=== PATIENT | male | born 1990 | race Caucasian/White ===

== ENCOUNTER 2017-01-12 20:47 | Emergency (ER) | payer OTHER ==
[2017-01-12 20:55] VITALS: TEMP 98.2
--- NOTE | 2017-01-12 21:06 | EDPHY ---
H & P Stated Complaint: Dark urine, testicular cramping right side 6 hours Time Seen by Provider: 01/12/17 21:05 HPI/ROS: CHIEF COMPLAINT: Dark urine, right testicular pain, transient flank HISTORY OF PRESENT ILLNESS: Patient presents to the ED with complaints of right testicular pain that began several hours ago. Patient did experience some acute right lower quadrant pain and then went onto developed hematuria. The patient denies prior history of these symptoms. Patient denies significant past medical history. The patient is not on regular medications. The patient has no prior history of kidney stone. The patient denies history of testicular trauma. The patient currently complains of 3/10 right testicular pain. REVIEW OF SYSTEMS: A comprehensive 10 point review of systems is otherwise negative aside from elements mentioned in the history of present illness. Source: Patient Exam Limitations: No limitations - Personal History Current Tetanus Diphtheria and Acellular Pertussis (TDAP): Yes Tetanus Vaccine Date: 8 yrs ago - Medical/Surgical History Hx Asthma: No Hx Chronic Respiratory Disease: No Hx Diabetes: No Hx Cardiac Disease: No Hx Renal Disease: No Hx Cirrhosis: No Hx Alcoholism: No Hx HIV/AIDS: No Hx Splenectomy or Spleen Trauma: No Other PMH: concusions - Social History Smoking Status: Former smoker - Physical Exam Exam: General Appearance: Alert, no distress Head: Atraumatic Eyes: Pupils equal, round, reactive ENT, Mouth: No hemotympanum, no oral trauma Neck: Nontender, trachea midline Respiratory: No chest wall tender, subcutaneous air, lungs clear bilaterally Cardiovascular: Regular rate and rhythm Abdomen: Tenderness to palpation right lower quadrant, back no CVA tenderness Genitourinary: No testicular tenderness, swelling, erythema or mass appreciated Skin: No lacerations, No abrasion Back: No midline T/L/S pain Extremities: Nontender, full range of motion Neurological: A&Ox3, normal motor function, normal sensory exam Constitutional: Initial Vital Signs Temperature (C) 36.8 C 01/12/17 20:50 Heart Rate 64 01/12/17 20:50 Respiratory Rate 18 01/12/17 20:50 Blood Pressure 154/113 H 01/12/17 20:50 O2 Sat (%) 97 01/12/17 20:50 O2 Delivery Mode Nasal Cannula Allergies/Adverse Reactions: No Known Allergies Allergy (Unverified 01/12/17 20:49) Home Medications: Medication Instructions Recorded NK [No Known Home Meds] 01/12/17 Medical Decision Making - Diagnostics Imaging Results: Imaging Impressions Abdomen/Pelvis CT 01/12/17 21:16 Impression: 1. No nephrolithiasis, ureteral calculi, or hydroureteronephrosis. 2. Bilateral L5 pars defect. Findings discussed with Emergency Department physician, Med Lozoya M.D. , on January 12, 2017 at 2216. Attention: This CT examination is specifically designed to evaluate patients who are clinically suspected of having acute obstructive uropathy. This examination does not use radiographic contrast, and as such, provides only a limited evaluation of the abdomen, pelvis, and retroperitoneum. If there is further clinical suspicion for pathological conditions other than obstructive uropathy, a complete CT evaluation of the abdomen and pelvis utilizing intravenous, oral, and rectal contrast should be considered. ED Course/Re-evaluation: The patient presents to the ED with complaints of acute right testicular pain, hematuria and right lower quadrant pain. The patient had an IV established. He received normal saline. The patient was noted to have gross hematuria. The patient was taken for stat CT scan of the abdomen pelvis which demonstrates no evidence of obvious ureterolithiasis or nephrolithiasis. I re-evaluated the patient shortly after CT scan, the patient is feeling much better. At this point time I suspect the patient has passed a stone as he does have calcium oxalate crystals noted on his urinalysis. At this point time I do feel the patient can be discharged home. He is advised to return to the ED for markedly worsening symptoms or other concerns. The plan will be for ibuprofen as needed for symptomatic pain. Differential Diagnosis: Differential diagnosis considered includes ureterolithiasis, nephrolithiasis, hydronephrosis, renal failure, rhabdomyolysis - Data Points Laboratory Results: Laboratory Results 01/12/17 21:27 01/12/17 21:27 01/12/17 01/12/17 01/12/17 21:27 21:27 21:20 WBC 10.53 10^3/uL H 10^3/uL (3.80-9.50) RBC 5.16 10^6/uL 10^6/uL (4.40-6.38) Hgb 16.4 g/dL g/dL (13.7-17.5) Hct 44.8 % % (40.0-51.0) MCV 86.8 fL fL (81.5-99.8) MCH 31.8 pg pg (27.9-34.1) MCHC 36.6 g/dL g/dL (32.4-36.7) RDW 12.2 % % (11.5-15.2) Plt Count 202 10^3/uL 10^3/uL (150-400) MPV 10.5 fL fL (8.7-11.7) Neut % (Auto) 70.5 % % (39.3-74.2) Lymph % (Auto) 19.1 % % (15.0-45.0) Stanley % (Auto) 8.6 % % (4.5-13.0) Eos % (Auto) 0.6 % % (0.6-7.6) Baso % (Auto) 0.8 % % (0.3-1.7) Nucleat RBC Rel Count 0.0 % % (0.0-0.2) Absolute Neuts (auto) 7.43 10^3/uL H 10^3/uL (1.70-6.50) Absolute Lymphs (auto) 2.01 10^3/uL 10^3/uL (1.00-3.00) Absolute Monos (auto) 0.91 10^3/uL H 10^3/uL (0.30-0.80) Absolute Eos (auto) 0.06 10^3/uL 10^3/uL (0.03-0.40) Absolute Basos (auto) 0.08 10^3/uL 10^3/uL (0.02-0.10) Absolute Nucleated RBC 0.00 10^3/uL 10^3/uL (0-0.01) Immature Gran % 0.4 % % (0.0-1.1) Immature Gran # 0.04 10^3/uL 10^3/uL (0.00-0.10) Sodium 137 mEq/L mEq/L (134-144) Potassium 3.8 mEq/L mEq/L (3.5-5.2) Chloride 104 mEq/L mEq/L (97-110) Carbon Dioxide 22 mEq/l mEq/l (22-31) Anion Gap 11 mEq/L mEq/L (8-16) BUN 20 mg/dL mg/dL (7-23) Creatinine 1.4 mg/dL H mg/dL (0.7-1.3) Estimated GFR > 60 Glucose 91 mg/dL mg/dL (70-100) Calcium 9.8 mg/dL mg/dL (8.5-10.4) Creatine Kinase 390 IU/L H IU/L (0-224) CK-MB (CK-2) Fraction 5.43 ng/mL H ng/mL (0-3.19) CK-MB (CK-2) % 1.4 % % (0.0-4.0) Creatine Kinase Interp NEGATIVE (NEGATIVE) Urine Color TIRSO Urine Appearance MODERATELY TURBID Urine pH 5.0 (5.0-7.5) Ur Specific [place] 1.029 (1.002-1.030) Urine Protein 1+ H (NEGATIVE) Urine Ketones 1+ H (NEGATIVE) Urine Blood 3+ H (NEGATIVE) Urine Nitrate NEGATIVE (NEGATIVE) Urine Bilirubin NEGATIVE (NEGATIVE) Urine Urobilinogen NEGATIVE EU EU (0.2-1.0) Ur Leukocyte Esterase NEGATIVE (NEGATIVE) Urine RBC 50-182 /hpf H /hpf (0-3) Urine WBC 1-3 /hpf /hpf (0-3) Ur Epithelial Cells NONE SEEN /lpf /lpf (NONE-1+) Calcium Oxalate Crystal PRESENT /hpf /hpf (NONE-1+) Urine Mucus 3+ /lpf H /lpf (NONE-1+) Urine Glucose NEGATIVE (NEGATIVE) Departure - Departure Disposition: Home, Routine, Self-Care Clinical Impression: Renal colic on right side Condition: Good Instructions: Renal Colic (ED) Additional Instructions: 1. It appears your symptoms today are secondary to having passed a small kidney stone. 2. Blood in your urine should resolve over the next day. 3. Please take ibuprofen as needed for comfort. 4. Please return to the ED for markedly worsening symptoms, fever, vomiting or other concerns. 5. You have been given the contact number of our urologist Dr. Monreal if you continue to have blood in your urine. Referrals: Claudio Monreal MD [Medical Doctor] - As per Instructions
[2017-01-12 21:38] LABS: % IMMATURE GRANULYOCYTES 0.4 % (0.0-1.1); ABSOLUTE IMMATURE GRANULOCYTES 0.04 10^3/uL (0.00-0.10); ADD DIFF? NO; ADD MORPH? NO; ADD SCAN? NO; ATYPICAL LYMPHOCYTE FLAG 10 (0-99); FRAGMENT RBC FLAG 0 (0-99); HEMATOCRIT 44.8 % (40.0-51.0); HEMOGLOBIN 16.4 g/dL (13.7-17.5); LEFT SHIFT FLG 0 (0-99); LIPEMIA HEMOLYSIS FLAG 90 (0-99); MEAN CELL HEMOGLOBIN 31.8 pg (27.9-34.1); MEAN CELL HEMOGLOBIN CONCENTR. 36.6 g/dL (32.4-36.7); MEAN CELL VOLUME 86.8 fL (81.5-99.8); MEAN PLATELET VOLUME 10.5 fL (8.7-11.7); PLATELET CLUMPS FLAG 0 (0-99); PLATELET COUNT 202 10^3/uL (150-400); RED BLOOD CELL COUNT 5.16 10^6/uL (4.40-6.38); RED CELL DISTRIBUTION WIDTH 12.2 % (11.5-15.2)
[2017-01-12 21:41] LABS: COLOR AMBER; LEUKOCYTE ESTERASE,URINE NEGATIVE (NEGATIVE); NITRITE,URINE NEGATIVE (NEGATIVE)
[2017-01-12 21:50] LABS: MUCUS 3+ /lpf (NONE-1+); RBC,URINE 50-182 /hpf (0-3)
[2017-01-12 21:56] LABS: ANION GAP 11 mEq/L (8-16); CALCIUM 9.8 mg/dL (8.5-10.4); CARBON DIOXIDE 22 mEq/l (22-31); CHLORIDE 104 mEq/L (97-110); CREATININE 1.4 mg/dL (0.7-1.3); GLOMERULAR FILTRATION RATE > 60; GLUCOSE 91 mg/dL (70-100); POTASSIUM 3.8 mEq/L (3.5-5.2); SODIUM 137 mEq/L (134-144)
[2017-01-12 22:12] LABS: CK-MB INTERPRETATION NEGATIVE (NEGATIVE)
[2017-01-12 22:16] LABS: CREATINE KINASE-MB FRACTION 5.43 ng/mL (0-3.19)
[2017-01-12 22:45] VITALS: BP 130/77; PULSE 51; RESP 14; O2SAT 96
== END 2017-01-12 22:52 | disposition home or self-care (01) ==
DX: N23 Unspecified renal colic (principal); Z87.891 Personal history of nicotine dependence